=== PATIENT | female | born 1965 | race Hispanic/Latino ===

== ENCOUNTER 2019-07-18 00:02 | Emergency (ER) | payer SELFPAY ==
[2019-07-18 00:12] VITALS: BP 105/78
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
--- NOTE | 2019-07-18 02:49 | XRay Report ---
LEFT SHOULDER 3 VIEWS INDICATION / CLINICAL INFORMATION: Left shoulder pain for 5 days. COMPARISON: None available. FINDINGS: BONES / JOINT(S): There are moderate degenerative changes involving the acromioclavicular joint. Ther e is no evidence of fracture, dislocation or destructive lesion. SOFT TISSUES: No significant abnormality. ADDITIONAL FINDINGS: The visualized left lung is clear. IMPRESSION: Moderate osteoarthritis involving the acromioclavicular joint without acute abnormality. Signer Name: Mike Sanches MD Signed: 07/18/2019 2:45 AM Workstation Name: [id number]
[2019-07-18] MEDS ORDERED: IBUPROFEN 600 MG TAB PO ONE (03:13)
== END 2019-07-18 03:22 | disposition home or self-care (01) ==
LOC: ED 00:02
DX: M19.012 Primary osteoarthritis, left shoulder (principal); I10 Essential (primary) hypertension; F17.200 Nicotine dependence, unspecified, uncomplicated
CPT/HCPCS: 99283